=== PATIENT | female | born 1980 | race Caucasian/White ===

== ENCOUNTER 2020-06-15 10:25 | Emergency (ER) | payer OTHER ==
[~2020-06-15] VITALS: Ht 167.6 cm; Wt 87.1 kg
[2020-06-15] MEDS ORDERED: PREVACID30 MG PO (17:33)
[2020-06-15] MEDS ORDERED: PEPCID AC20 MG PO (17:33)
== END 2020-06-15 17:55 | disposition home or self-care (01) ==
LOC: ER 10:25
DX: K29.70 Gastritis, unspecified, without bleeding (principal); R10.13 Epigastric pain

== ENCOUNTER 2020-09-08 16:15 | Emergency (ER) | payer OTHER ==
[~2020-09-08] VITALS: Ht 167.6 cm; Wt 88.5 kg
[~2020-09-08 16:15] MED LIST: PEPCID AC20 MG PO; PREVACID30 MG PO
== END 2020-09-09 10:19 | disposition home or self-care (01) ==
LOC: ER 16:15
DX: K29.70 Gastritis, unspecified, without bleeding (principal); R10.13 Epigastric pain; E86.0 Dehydration

== ENCOUNTER 2021-03-04 15:40 | Emergency (ER) | payer OTHER ==
[~2021-03-04] VITALS: Ht 165.1 cm; Wt 90.7 kg
[2021-03-04] MEDS ORDERED: BOSWELLIA SERRAT1 GM (16:01)
== END 2021-03-04 19:45 | disposition home or self-care (01) ==
LOC: ER 15:40
DX: M54.5 Low back pain (principal)